=== PATIENT | male | born 1955 | race Caucasian/White ===

== ENCOUNTER 2017-02-15 15:00 | Emergency (ER) | payer OTHER ==
[2017-02-15 15:05] VITALS: BP 128/81
[2017-02-15] MEDS ORDERED: SODIUM CHLORIDE 0.9% 1,000ML IVBOLUS ONE (15:30)
[2017-02-15] MEDS ORDERED: PLEASE ENTER ALLERGIES MC SCH ×2 (15:30)
[2017-02-15] MEDS ORDERED: PLEASE ENTER HEIGHT AND WEIGHT MC SCH (15:30)
[2017-02-15] MEDS ORDERED: MECLIZINE CHEWABLE 25 MG TAB PO ONE (15:30)
[2017-02-15 15:41] LABS: PH, VENOUS 7.348 pH (7.320-7.420)
[2017-02-15 15:48] LABS: HEMATOCRIT 40.3 % (39.2-51.8); HEMOGLOBIN 13.3 g/dL (13.7-18.0); WHITE BLOOD COUNT 6.6 x10^3/uL (3.4-10)
[2017-02-15 15:52] LABS: BLOOD UREA NITROGEN 18 mg/dL (7-18)
== END 2017-02-15 15:49 ==
LOC: ED 15:23
DX: R42 Dizziness and giddiness (principal)
CPT/HCPCS: 36415; 80048; 82010; 82040; 82803; 85025; 93005; 99285